=== PATIENT | female | born 1960 | race Caucasian/White ===

== ENCOUNTER 2023-06-07 09:41 | Outpatient (CLI) | payer OTHER, BC, SELFPAY ==
--- NOTE | ~2023-06-07 | XR_ITS ---
Left foot Technique: AP and lateral views were obtained. Clinical History: Rheumatoid arthritis Findings: No acute fracture or dislocation is seen. Osseous alignment is anatomic. Joint spaces are p reserved without erosive or degenerative change. Plantar calcaneal spur present. Soft tissues are unr emarkable. Impression: Plantar calcaneal spur, otherwise unremarkable left foot radiographs. Reviewed, dictated and finalized at location . 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
--- NOTE | ~2023-06-07 | XR_ITS ---
Right foot Technique: AP and lateral views were obtained. Clinical History: Rheumatoid arthritis Findings: No acute fracture or dislocation is seen. Osseous alignment is anatomic. Joint spaces are p reserved without erosive or degenerative change. Soft tissues are unremarkable. Impression: Unremarkable right foot radiographs. Reviewed, dictated and finalized at [facility]. ICAL PHARMACIST Impression: Unremarkable right foot radiographs.
--- NOTE | ~2023-06-07 | XR_ITS ---
EXAMINATION: XR hand BI arthritis min 3V DATE: 06/07/2023 10:19 INDICATION: Rheumatoid arthritis. TECHNIQUE: 4 views of right hand and 4 views of left hand on a total of 7 radiographs were obtained. COMPARISON: None. FINDINGS: RIGHT HAND: Bone alignment is normal. There is mild osteoarthritis of distal radioulnar joint and thi rd and fifth distal interphalangeal joints. LEFT HAND: Bone alignment is normal. No fracture. There is mild osteoarthritis of first interphalange al joint and third and fifth distal interphalangeal joints. IMPRESSION: 1. Mild polyarticular osteoarthritis. No evidence of inflammatory arthropathy. Reviewed, dictated and finalized at location A. 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
[2023-06-07 10:30] LABS: Hematocrit 42.8 % (35.0-49.0); Hemoglobin 14.5 g/dL (12.0-15.0); Mean Corpuscular HGB Conc 33.9 g/dL (32.0-36.0); Mean Corpuscular Hemoglobin 29.8 pg (27.0-31.0); Mean Corpuscular Volume 88.1 fL (78.0-102.0); Mean Platelet Volume 10.1 fl (9.2-11.8); Platelet Count Result 346 K/mm3 (150-420); Red Blood Count 4.86 M/mm3 (4.20-5.40); Red Cell Distribution Width 12.8 % (11.6-14.4); White Blood Count 8.3 K/mm3 (4.8-10.8)
[2023-06-07 10:59] LABS: Alanine Aminotransferase 48 U/L (14-59); Albumin Level 3.7 g/dL (3.4-5.0); Alkaline Phosphatase 62 U/L (46-116); Anion Gap 10 mmol/L (8-16); Aspartate Amino Transferase 24 U/L (15-37); Bilirubin,Total 0.3 mg/dL (0.00-1.00); Blood Urea Nitrogen 12 mg/dL (7-18); CRP < 0.5 mg/dL (0.0-0.9); Carbon Dioxide 26 mmol/L (21-32); Chloride 104 mmol/L (98-108); Estimated Glomerular Filt Rate > 60; Glucose 103 mg/dL (70-99); Osmolality Calculated 289 mOsm/kg (285-295); Potassium 4.6 mmol/L (3.5-5.1); Sodium 140 mmol/L (136-145); Total Protein 6.4 g/dL (6.4-8.2); Uric Acid 5.7 mg/dL (2.6-6.0)
[2023-06-07 11:00] LABS: RFT Charge Test YES; Rheumatoid Factor Screen Positive (Negative); Rheumatoid Factor Titer 1:32/320 (Negative)
[2023-06-07 11:36] LABS: Erythrocyte Sedimentation Rate 11 mm/hr (0-20)
[2023-06-10 13:16] LABS: Hepatitis B Surface Antibody Nonreactive (Nonreactive); Hepatitis B Surface Antigen Nonreactive (Nonreactive); Hepatitis C Virus Antibody Nonreactive
[2023-06-11 13:23] LABS: NIL 0.02 IU/mL; Quantiferon TB Plus, 1T NEGATIVE (NEGATIVE); TB1-NIL 0.06 IU/mL; TB2-NIL 0.05 IU/mL
[2023-06-11 21:02] LABS: Vitamin D 25 Hydroxy 43 ng/mL (30-100)
[2023-06-12 13:03] LABS: Anti Cyclic Citrullinated Pept <16 Units (<20)
== END 2023-06-07 09:42 | disposition home or self-care (01) ==
LOC: CHSLAB 09:44
PROVIDERS: PCP Family Medicine; Visit Provider Internal Medicine
DX: M05.79 Rheumatoid arthritis with rheumatoid factor of multiple sites without organ or systems involvement (principal); Z79.899 Other long term (current) drug therapy; Z71.89 Other specified counseling; M15.9 Polyosteoarthritis, unspecified
CPT/HCPCS: 36415; 73130; 73620; 80053; 82306; 84550; 85027; 85652; 86038; 86140; 86200; 86430; 86431; 86480; 86706; 86803; 87340